=== PATIENT | female | born 1960 | race Caucasian/White ===

== ENCOUNTER → 2017-08-04 | Outpatient (CLI) | payer BC ==
[~2017-08-04] MED LIST: AFLI2VIA IO; ANAS1TAB3 PO; CALC600T4 PO; CHOL100013 PO; DIPH1TAB PO; MULT1TAB52 PO; ONDA8TAB9 PO; PROC10TA57 PO; TRAS440V IV
--- NOTE | 2017-08-04 15:46 | KCIC ---
EXAM: Bilateral hands, 3 views. HISTORY: Polyarthralgia. COMPARISON: None. FINDINGS: Frontal, lateral and oblique views of both hands are obtained. There is moderate left first carpal metacarpal joint space narrowing and spurring. There is a chronic fragmented spur along the dorsal aspect of the third distal interphalangeal joint. There is no acute fracture, dislocation or subluxation. IMPRESSION: 1. Moderate left first carpometacarpal osteoarthritis and mild left third distal interphalangeal joint osteoarthritis. 2. No acute osseous finding. Electronically signed by: Sun Martinez MD (08/04/2017 2:11 PM) [id number]
== END | disposition home or self-care (01) ==
LOC: KCIC 13:14
PROVIDERS: ATTEND Internal Medicine Rheumatology
DX: M19.042 Primary osteoarthritis, left hand (principal); M19.041 Primary osteoarthritis, right hand
CPT/HCPCS: 73130